=== PATIENT | male | born 1985 | race Caucasian/White ===

== ENCOUNTER 2016-09-08 17:22 | Emergency (ER) | payer OTHER ==
[~2016-09-08] VITALS: Ht 175.3 cm; Wt 62.0 kg
[2016-09-08 17:42] VITALS: BP 117/62; PULSE 77; RESP 20; TEMP 98.3; O2SAT 99
[2016-09-08] MEDS ORDERED: hiv meds (17:48)
[2016-09-08] MEDS ORDERED: ZOLO100T PO (17:50)
[2016-09-08] MEDS ORDERED: BUPR150XL PO (17:50)
--- NOTE | 2016-09-08 17:59 | PD ---
HPI Chief Complaint: Altered Mental Status Time Seen by Provider: 17:45 Travel History International Travel<30 days: No Contact w/Intl Traveler<30days: No Traveled to known affect area: No History of Present Illness HPI The patient is a 30-year-old male who presents to the emergency department via EMS for alcohol intoxication. The patient states he is currently visiting with his from [place], they were staying with an on -call in [place], [place]. The patient states apparently he was sleeping and his became upset, he subsequently took a bus to [place]. The patient states he has been drinking "steel reserve "and "Smirnoff ". The patient is unable to quantify the amount of alcohol he drank today, he denies any current physical complaints including chest pain, shortness breath, nausea, vomiting, or abdominal pain. EMS does state the patient has somewhat slurred speech, possibly from alcohol intoxication. He is oriented to person, month, and berry picker. He denies any current physical complaints. [facility] Past Medical History Depression: Yes Immune Disorder: Yes (hiv) Tetanus Vaccination: Unknown Past Surgical History Surgical History: No Previous Surgery Social History Alcohol Use: Yes Tobacco Use: No Substance Use: No Allergies-Medications (Allergen,Severity, Reaction): Coded Allergies: Penicillin (Verified Allergy, Unknown, 09/08/16) Reported Meds & Prescriptions Reported Meds & Active Scripts Active Reported Wellbutrin Xl 24 HR (Bupropion HCl) 150 Mg Tab 150 Mg PO DAILY Zoloft (Sertraline HCl) 100 Mg Tab 100 Mg PO DAILY [hiv meds ] Review of Systems ROS Limitations: Intoxication Except as stated in HPI: all other systems reviewed are Neg General / Constitutional: No: Fever HENT: No: Headaches Cardiovascular: No: Chest Pain or Discomfort Respiratory: No: Shortness of Breath Gastrointestinal: No: Nausea, Vomiting, Abdominal Pain Psychiatric: Positive: Substance Abuse (alcohol intoxication) Physical Exam Exam Limitations: Intoxication Narrative GENERAL: Awake, 30-year-old male who appears intoxicated. Falls asleep easily. SKIN: Focused skin assessment warm/dry. HEAD: Atraumatic. Normocephalic. EYES: Pupils equal and round. Pupils are 4 mm bilateral and reactive. Mild injection bilaterally. ENT: No nasal bleeding or discharge. Breath smells of alcohol. NECK: Trachea midline. No JVD. CARDIOVASCULAR: Regular rate and rhythm. No murmur appreciated. RESPIRATORY: No accessory muscle use. Clear to auscultation. Breath sounds equal bilaterally. GASTROINTESTINAL: Abdomen soft, non-tender, nondistended. No rebound tenderness. MUSCULOSKELETAL: No obvious deformities. No clubbing. No cyanosis. No edema. NEUROLOGICAL: Awake and alert. No obvious cranial nerve deficits. Motor grossly within normal limits. Normal speech. Oriented to person, month, and berry picker. PSYCHIATRIC: Appears intoxicated. Data Data Last Documented VS Vital Signs Date Time Temp Pulse Resp B/P Pulse Ox O2 Delivery O2 Flow Rate FiO2 09/08/16 19:08 73 18 95 Room Air 09/08/16 19:07 120/68 09/08/16 17:42 98.3 Orders Basic Metabolic Panel (Bmp) (09/08/16 17:50) Alcohol (Ethanol) (09/08/16 17:50) Labs Laboratory Tests Test 09/08/16 17:45 Sodium Level 139 MEQ/L Potassium Level 3.5 MEQ/L Chloride Level 106 MEQ/L Carbon Dioxide Level 24.5 MEQ/L Anion Gap 9 MEQ/L Blood Urea Nitrogen 22 MG/DL Creatinine 1.07 MG/DL Estimat Glomerular Filtration 80 ML/MIN Rate Random Glucose 81 MG/DL Calcium Level 8.5 MG/DL Ethyl Alcohol Level 154 MG/DL [facility] Medical Decision Making Medical Screen Exam Complete: Yes Emergency Medical Condition: Yes Medical Record Reviewed: Yes Interpretation(s) Laboratory Tests Test 09/08/16 17:45 Sodium Level 139 MEQ/L Potassium Level 3.5 MEQ/L Chloride Level 106 MEQ/L Carbon Dioxide Level 24.5 MEQ/L Anion Gap 9 MEQ/L Blood Urea Nitrogen 22 MG/DL Creatinine 1.07 MG/DL Estimat Glomerular Filtration 80 ML/MIN Rate Random Glucose 81 MG/DL Calcium Level 8.5 MG/DL Ethyl Alcohol Level 154 MG/DL Differential Diagnosis Differential diagnosis includes alcohol intoxication, polysubstance abuse, hyponatremia, dehydration. Narrative Course IV was established and the patient was placed on cardiac telemetry monitoring and continuous pulse oximetry monitoring. BMP and alcohol level were sent to lab. The patient was monitored in the emergency department. The BMP is unremarkable. Alcohol level is elevated at 154. The patient is medically clear to be discharged when he is able to ambulance and has a safe disposition home. Diagnosis Primary Impression: Alcohol intoxication Qualified Code: F10.920 - Alcohol intoxication, uncomplicated Patient Instructions: General Instructions Additional Instructions: Decrease alcohol intake. Follow-up with your primary physician. Discharge when able to ambulate and has a safe ride home. Med/Other Pt SpecificInfo: No Change to Meds Disposition: 01 DISCHARGE HOME Condition: Stable Cortez Domingo MD Sep 08, 2016 17:59
[2016-09-08 19:07] VITALS: BP 120/68; PULSE 68; RESP 14; O2SAT 95
[2016-09-08 19:40] LABS: BICARBONATE 24.5 MEQ/L (21.0-32.0); POTASSIUM 3.5 MEQ/L (3.5-5.1)
[2016-09-09 05:06] VITALS: BP 142/85; PULSE 62; RESP 18; O2SAT 96
== END 2016-09-09 06:30 | disposition home or self-care (01) ==
LOC: NEPD 17:22
DX: F10.120 Alcohol abuse with intoxication, uncomplicated (principal); Y90.6 Blood alcohol level of 120-199 mg/100 ml; Z79.899 Other long term (current) drug therapy
CPT/HCPCS: 80048; 80307; 99283